=== PATIENT | female | born 1945 | race Caucasian/White ===

== ENCOUNTER 2023-06-23 18:36 | Emergency (ER) | payer OTHER ==
[~2023-06-23] VITALS: Ht 162.6 cm; Wt 72.6 kg
[2023-06-23 18:42] VITALS: BP_SYST 158; PULSE 77; RESP 18; TEMP 97.1; O2SAT 98
[2023-06-23] MEDS ORDERED: KETOROLAC TROMETHAMINE 60 MG/2 ML VIAL IM ONE (19:15)
[2023-06-23] MEDS ORDERED: cephALEXin 500 MG CAPSULE PO ONE (19:15)
[2023-06-23] MEDS ORDERED: IBUPROFEN 600 MG TABLET PO ONE (19:15)
[2023-06-23] MEDS ORDERED: DICL20GE TP (20:12)
[2023-06-23] MEDS ORDERED: CEPH-548 PO (20:12)
[2023-06-23 20:29] VITALS: BP_SYST 118; PULSE 76; RESP 17; TEMP 97.7; O2SAT 94
== END 2023-06-23 20:29 | disposition home or self-care (01) ==
LOC: SED 18:36
DX: S60.561A Insect bite (nonvenomous) of right hand, initial encounter (principal); L03.113 Cellulitis of right upper limb; Z79.899 Other long term (current) drug therapy; W57.XXXA Bitten or stung by nonvenomous insect and other nonvenomous arthropods, initial encounter; Y93.89 Activity, other specified; Y92.89 Other specified places as the place of occurrence of the external cause; Y99.8 Other external cause status
CPT/HCPCS: 93971; 99284